=== PATIENT | male | born 1975 | race Caucasian/White ===

== ENCOUNTER → 2016-11-14 | Outpatient (CLI) | payer OTHER ==
[~2016-11-14] MED LIST: GABA600T2 PO; HYDR-3237 PO; ISOM1CAP PO; METH5TAB6 PO; SUMA100T4 PO
== END | disposition home or self-care (01) ==
LOC: CFH 15:41
PROVIDERS: ATTEND Family Medicine
DX: K76.0 Fatty (change of) liver, not elsewhere classified (principal); K80.20 Calculus of gallbladder without cholecystitis without obstruction
CPT/HCPCS: 76700; 76857

== ENCOUNTER 2016-12-06 08:27 | Day surgery (SDC) | payer OTHER ==
[~2016-12-06] VITALS: Ht 182.9 cm; Wt 110.3 kg
[~2016-12-06 08:27] MED LIST changes: +FENTANYL PF 100 MCG/2ML ONE; +MIDAZOLAM 1 MG/ML, 2ML ONE; +OMEP20TA62 PO; +VIT1TABL46 PO
[2016-12-06 08:52] VITALS: BP 146/97
[2016-12-06 08:55] VITALS: BP 146/97
[2016-12-06] MEDS ORDERED: LACTATED RINGERS 1,000 ML IV SCH ×2 (09:13→11:21)
[2016-12-06] MEDS ORDERED: BUPIVACAINE/PF 0.5% ONE (09:55)
[2016-12-06] MEDS ORDERED: EPINEPHRINE 1 MG/ML, 1ML ONE (09:55)
[2016-12-06] MEDS ORDERED: PROPOFOL 10 MG/ML, 20ML ONE (10:12)
[2016-12-06] MEDS ORDERED: ROCURONIUM 10 MG/ML ONE ×2 (10:12)
[2016-12-06] MEDS ORDERED: CEFOTETAN PMX 2GM/50ML 50 ML ONE (10:13)
[2016-12-06] MEDS ORDERED: ACETAMINOPHEN 325 MG TABLET PO PRN (10:30)
[2016-12-06] MEDS ORDERED: FENTANYL PF 100 MCG/2ML IV PRN (10:30)
[2016-12-06] MEDS ORDERED: MEPERIDINE/PF 25MG/0.5ML IVPush PRN (10:30)
[2016-12-06] MEDS ORDERED: ONDANSETRON 2MG/ML, 2ML IVPush PRN ×2 (10:30→11:30)
[2016-12-06] MEDS ORDERED: hydrALAzine 20 MG/ML, 1ML IV PRN (10:30)
[2016-12-06] MEDS ORDERED: OXYcodone 5 MG/5 ML ORAL.SOL UDC PO PRN (10:30)
[2016-12-06] MEDS ORDERED: PROMETHAZINE 25 MG/ML, 1ML IV PRN (10:30)
[2016-12-06] MEDS ORDERED: GLYCOPYRROLATE 0.4 MG/2 ML, 2ML ONE (10:45)
[2016-12-06] MEDS ORDERED: NEOSTIGMINE 1 MG/ML, 10ML ONE (10:45)
[2016-12-06] MEDS ORDERED: FENTANYL PF 100 MCG/2ML ONE (10:47)
[2016-12-06] MEDS ORDERED: morphine SULFATE 10 MG/ML, 1ML IVPush PRN (11:30)
[2016-12-06] MEDS ORDERED: MEPERIDINE/PF 25MG/0.5ML ONE (11:37)
[2016-12-06] MEDS ORDERED: ACETAMINOPHEN 650 MG/20.3 ML UDC ONE (11:37)
[2016-12-06] MEDS ORDERED: HYDROmorphone 1 MG/ML, 1ML ONE (11:37)
[2016-12-06] MEDS ORDERED: OXYcodone 5 MG/5 ML ORAL.SOL UDC ONE (11:38)
[2016-12-06] MEDS: HYDROmorphone 1 MG/ML, 1ML IV PRN ×3 (11:46→12:06)
[2016-12-06] MEDS: LABETALOL 5MG/ML, 20ML IV PRN ×2 (11:58→12:04)
== END 2016-12-06 13:45 ==
LOC: OUT 08:27
PROVIDERS: ATTEND Surgery
DX: K80.10 Calculus of gallbladder with chronic cholecystitis without obstruction (principal); G89.29 Other chronic pain
CPT/HCPCS: 47562; 88304; J0171; J1170; J2175; J2250; J2704; J2710; J3010; J3490; J7120; S0074